=== PATIENT | female | born 1975 | race American Indian/Alaskan Native ===

== ENCOUNTER 2021-11-04 19:55 | Emergency (ER) | payer SELFPAY ==
--- NOTE | 2021-11-05 10:07 | Electrocardiograph Report ---
[facility] Test Date: 2021-11-04 Test Time: 20:46:21 Pat Name: STONEY NGUYEN Department: Room: Gender: F Emergency Room Rn: REBECCA : 1975 Requested By: MARIJA GIRON Order Number: [id number] Reading MD: Rd Angel Measurements Intervals [place] Rate: 67 P: 54 [place]: 146 QRS: -15 QRSD: 84 T: 125 QT: 446 QTc: 470 Interpretive Statements Sinus rhythm LVH with secondary repolarization abnormality No previous ECG available for comparison Electronically Signed On 11-05-2021 10:07:[address] Angel
[2021-11-05] MEDS ORDERED: ASPIRIN 81 MG TAB CHEW PO ONE (12:05)
[2021-11-05] MEDS ORDERED: FUROSEMIDE 40 MG/4 ML INJ IV ONE (12:06)
[2021-11-05] MEDS ORDERED: ONDANSETRON 4 MG/2 ML INJ IV ONE (12:06)
--- NOTE | 2021-11-05 13:17 | XRay Report ---
CHEST 1 VIEW 11/05/2021 12:03 PM INDICATION / CLINICAL INFORMATION: Chest Pain. COMPARISON: 03/29/2012 chest FINDINGS: SUPPORT DEVICES: None. HEART / MEDIASTINUM: No significant abnormality. LUNGS / PLEURA: No significant pulmonary or pleural abnormality. No pneumothorax. ADDITIONAL FINDINGS: No significant additional findings. IMPRESSION: 1. No acute findings. Signer Name: Cruz Peacock MD Signed: 11/05/2021 1:13 PM Workstation Name: [email or web address]
[2021-11-05 14:27] LABS: Basophils # (Auto) 0.1 K/mm3 (0.0-0.1); Basophils % (Auto) 1.6 % (0.0-1.8); Hematocrit 36.7 % (30.3-42.9); Hemoglobin 13.1 gm/dl (10.1-14.3); Lymphocytes # (Auto) 1.2 K/mm3 (1.2-5.4); Lymphocytes % (Auto) 15.4 % (13.4-35.0); Mean Corpuscular HGB Conc 36 % (30-34); Mean Corpuscular Volume 100 fl (79-97); Monocytes # (Auto) 0.9 K/mm3 (0.0-0.8); Monocytes % (Auto) 11.8 % (0.0-7.3); Platelet Count 271 K/mm3 (140-440); Red Blood Count 3.69 M/mm3 (3.65-5.03); Red Cell Distribution Width 12.6 % (13.2-15.2)
[2021-11-05 14:37] LABS: INR 0.9 (0.87-1.13)
--- NOTE | 2021-11-05 14:40 | Emergency Department Report ---
ED General Adult HPI - General Chief complaint: Chest Pain Stated complaint: PRESSURE CHEST/LIGHTHEADED/SOB PUI?: No Time Seen by Provider: 11/05/21 12:05 Source: patient Mode of arrival: Ambulatory Limitations: No Limitations - History of Present Illness Initial comments: substernal chest pressure and shortness of breath x 2 days, cyst on my chest also complaints of painful lump on he right breast , no fever no injury -: Gradual, days(s) Location: chest Radiation: non-radiation Consistency: intermittent Improves with: none Worsens with: none Associated Symptoms: denies: denies other symptoms, confusion, chest pain Treatments Prior to Arrival: none - Related Data Previous Rx's Medication Instructions Recorded Last Taken Type Ketorolac [Toradol] 10 mg PO Q6H PRN #14 11/05/21 Unknown Rx Sulfamethoxazole/Trimethoprim 1 each PO BID #10 11/05/21 Unknown Rx [Bactrim DS TAB] Allergies Allergy/AdvReac Type Severity Reaction Status Date / Time terbutaline Allergy Hives Verified 11/04/21 22:07 ED Review of Systems ROS: Stated complaint: PRESSURE CHEST/LIGHTHEADED/SOB Other details as noted in HPI Constitutional: denies: chills, fever Eyes: denies: eye pain, eye discharge, vision change ENT: denies: ear pain, throat pain Respiratory: denies: cough, shortness of breath, wheezing Cardiovascular: denies: chest pain, palpitations Endocrine: no symptoms reported Gastrointestinal: denies: abdominal pain, nausea, diarrhea Genitourinary: denies: urgency, dysuria, discharge Musculoskeletal: denies: back pain, joint swelling, arthralgia Skin: denies: rash, lesions Neurological: denies: headache, weakness, paresthesias Psychiatric: denies: anxiety, depression Hematological/Lymphatic: denies: easy bleeding, easy bruising ED Past Medical Hx - Past Medical History Previous Medical History?: Yes Hx Congestive Heart Failure: Yes Hx Diabetes: Yes Additional medical history: gallstones - Surgical History Past Surgical History?: Yes Additional Surgical History: left knee, tubal ligation - Social History Smoking Status: Current Every Day Smoker Substance Use Type: None - Medications Home Medications: Home Medications Medication Instructions Recorded Confirmed Last Taken Type Ketorolac [Toradol] 10 mg PO Q6H PRN #14 11/05/21 Unknown Rx Sulfamethoxazole/Trimethoprim 1 each PO BID #10 11/05/21 Unknown Rx [Bactrim DS TAB] ED Physical Exam - General Limitations: No Limitations General appearance: alert, in no apparent distress - Head Head exam: Present: atraumatic, normocephalic - Eye Eye exam: Present: normal appearance - ENT ENT exam: Present: mucous membranes moist - Neck Neck exam: Present: normal inspection - Respiratory Respiratory exam: Present: normal lung sounds bilaterally, other (rt breast abscess ). Absent: respiratory distress - Cardiovascular Cardiovascular Exam: Present: regular rate, normal rhythm. Absent: systolic murmur, diastolic murmur, rubs, gallop - GI/Abdominal GI/Abdominal exam: Present: soft, normal bowel sounds - Extremities Exam Extremities exam: Present: normal inspection - Back Exam Back exam: Present: normal inspection - Neurological Exam Neurological exam: Present: alert, oriented X3 - Psychiatric Psychiatric exam: Present: normal affect, normal mood - Skin Skin exam: Present: warm, dry, intact, normal color. Absent: rash ED Course Vital Signs 11/04/21 11/05/21 11/05/21 22:08 12:34 12:36 Temperature 99.4 F Pulse Rate 74 Respiratory 18 Rate Blood Pressure 124/78 147/78 O2 Sat by Pulse 95 98 98 Oximetry 11/05/21 11/05/21 11/05/21 12:38 12:40 12:42 Temperature Pulse Rate Respiratory Rate Blood Pressure 147/78 147/78 147/78 O2 Sat by Pulse 97 99 97 Oximetry 11/05/21 12:43 Temperature Pulse Rate 80 Respiratory 20 Rate Blood Pressure O2 Sat by Pulse Oximetry ED Medical Decision Making - Lab Data Result diagrams: 11/05/21 12:31 - EKG Data -: EKG Interpreted by Hi EKG shows normal: sinus rhythm Rate: normal - EKG Data Interpretation: LVH - Radiology Data Radiology results: report reviewed, image reviewed Critical care attestation.: If time is entered above; I have spent that time in minutes in the direct care of this critically ill patient, excluding procedure time. ED Disposition Clinical Impression: Breast abscess, Chest pain Disposition: 01 HOME / SELF CARE / HOMELESS Is pt being admited?: No Does the pt Need Aspirin: No Condition: Stable Instructions: Nonspecific Chest Pain, Adult, Skin Abscess Prescriptions: Sulfamethoxazole/Trimethoprim [Bactrim DS TAB] 1 each PO BID #10 Ketorolac [Toradol] 10 mg PO Q6H PRN #14 PRN Reason: Pain Referrals: LADONNA HICKS MD [Primary Care Provider] - 3-5 Days
[2021-11-05 15:19] LABS: Alanine Aminotransferase 27 units/L (7-56); Albumin 4.1 g/dL (3.9-5); BUN/Creatinine Ratio 11; Blood Urea Nitrogen 10 mg/dL (7-17); Hemolysis Index 6
[2021-11-05 16:47] VITALS: BP 154/82
--- NOTE | 2021-11-06 11:18 | Electrocardiograph Report ---
[facility] Test Date: 2021-11-05 Test Time: 15:01:01 Pat Name: STONEY NGUYEN Department: Room: Gender: F [employer]: NURSE : 1975 Requested By: DUNCAN HE Order Number: [id number] Reading MD: Rd Angel Measurements Intervals [place] Rate: 54 P: 41 [place]: 170 QRS: -26 QRSD: 89 T: 125 QT: 466 QTc: 444 Interpretive Statements Sinus bradycardia Left atrial enlargement LVH with secondary repolarization abnormality Anterior Q waves, possibly due to LVH Compared to ECG 11/04/2021 20:46:21 Atrial abnormality now present Q waves now present Sinus rhythm no longer present Electronically Signed On 11-06-2021 11:17:[address] Angel
== END 2021-11-05 16:47 | disposition home or self-care (01) ==
LOC: ED 19:55
DX: R07.9 Chest pain, unspecified (principal); N61.1 Abscess of the breast and nipple; I50.9 Heart failure, unspecified; E11.9 Type 2 diabetes mellitus without complications; F17.200 Nicotine dependence, unspecified, uncomplicated; Z91.09 Other allergy status, other than to drugs and biological substances; Z79.899 Other long term (current) drug therapy
CPT/HCPCS: 36415; 71045; 80053; 82550; 83690; 83880; 84484; 85025; 85610; 86140; 93005; 96374; 96375; 99284; J1940; J2405

== ENCOUNTER 2021-11-05 07:11 | Outpatient (CLI) | payer OTHER ==
--- NOTE | 2021-11-05 09:00 | XRay Report ---
XR spine lumbosacral 2-3V INDICATION / CLINICAL INFORMATION: BACK PAIN. COMPARISON: None available. FINDINGS: BONES/JOINT(S): No acute fracture or subluxation. Mild generalized spondylosis. No focal bone erosion s or focal osteopenia to suggest inflammatory arthropathy. SOFT TISSUES: No significant abnormality. ADDITIONAL FINDINGS: None. Signer Name: Jeevan Agee MD Signed: 11/05/2021 8:56 AM Workstation Name: [id number]
== END 2021-11-05 07:12 | disposition home or self-care (01) ==
LOC: XRAY 07:11
PROVIDERS: ATTEND Internal Medicine
DX: M47.817 Spondylosis without myelopathy or radiculopathy, lumbosacral region (principal)
CPT/HCPCS: 72100